=== PATIENT | female | born 1990 | race African-American/Black ===

== ENCOUNTER 2017-07-04 13:25 | Emergency (ER) | payer OTHER ==
--- NOTE | ~2017-07-04 | EKG ---
PATIENT: CALDERON MCNULTY UNIT #: [id number] Ventricular Rate: 70 BPM Atrial Rate: 70 BPM P-R Interval: 150 ms QRS Duration: 76 ms Q-T Interval: 404 ms QTC Calculation(Bezet): 436 ms P [place]: 69 degrees Calculated R [place]: 51 degrees Calculated T [place]: 16 degrees Diagnosis Line: Normal sinus rhythm with sinus arrhythmia Diagnosis Line: Low voltage QRS Diagnosis Line: Poor R wave progression questionable lead position Diagnosis Line: or body habitus Diagnosis Line: Borderline ECG Diagnosis Line: No previous ECGs available Diagnosis Line: Confirmed by IGOR RICO MD ([id number]) on 07/05/2017 Diagnosis Line: 7:16:03 PM INTERPRETING MD: JACKY CARRILLO
--- NOTE | ~2017-07-04 | CR63 ---
[facility] A Service of [facility] & [facility] / [facility] RADIOLOGY TEXT RESULTS PATIENT: CALDERON MCNULTY LOCATION: CFTX : 88 UNIT #: [id number] AGE: [address]: HAYLEE GARRETT SEX: F ORDER DR: [id number] [facility] [address] [facility]. [id number] MR#: [id number] Acc #: [id number] NAME: CALDERON MCNULTY : 1990 SEX: F STUDY DATE/TIME: 07/04/2017 15:43 UNIT: [facility] ROOM: STUDY DESCRIPTION: CR Chest 2 View Attending Physician: Haylee Garrett Aprn Ordering Physician: Haylee Garrett Aprn MEDICAL IMAGING REPORT This report is preliminary unless electronic signature is present EXAM Two-view chest HISTORY Chest pain, painful breathing, cough, onset today. FINDINGS PA and lateral examination of the chest upright shows a good expansion of the parenchyma with a normal distribution of the pulmonary vascularity. There is no indication of congestion, effusion, infiltrate, tumor, or nodular density. The pleural reflections and diaphragmatic contours are normal. The cardiac silhouette and mediastinal anatomy is within normal limits. IMPRESSION Normal chest. Dictated by... Aniket Licea M.D. THIS IS AN ELECTRONICALLY VERIFIED REPORT Aniket Licea M.D. at 07/04/2017 8:48 PM Chana TD: 07/04/2017 19:28 JOB #: [id number] MEDICAL IMAGING REPORT Page 1 of 1 COPY
[2017-07-04 15:19] LABS: POC - CKMB <1.0 ng/mL (0.0-7.9); POC - TROPONIN <0.05 ng/mL (<=0.05)
[2017-07-04 15:26] LABS: BASOPHIL# 0.1 X10e3 (0-0.3); BASOPHIL% 1.3 % (0-2.5); EOSINOPHIL# 0.8 X10e3 (0-0.7); EOSINOPHIL% 6.7 % (0.0-7.0); HEMATOCRIT 40.3 % (35.0-45.0); HEMOGLOBIN 13.9 gm/dL (12.0-16.0); LYMPHOCYTE# 3.2 X10e3 (1.0-3.5); LYMPHOCYTE% 28.9 % (17.0-45.0); MEAN CELL VOLUME 83.4 FL (83-96); MEAN CORPUSCULAR HEMOGLOBIN 28.8 PG (28-34); MEAN CORPUSCULAR HGB CONC 34.5 g/dL (30-36); MEAN PLATELET VOLUME 9.5 FL (6.5-11.5); MONOCYTE# 0.9 X10e3 (0-1.0); MONOCYTE% 8.4 % (3.0-12.0); NEUTROPHIL# 6.1 X10e3 (1.5-7.1); NEUTROPHIL% 54.7 % (40-75); PLATELET COUNT 212 X10e3 (140-420); RED BLOOD COUNT 4.84 X10e (3.90-5.30); RED CELL DISTRIBUTION WIDTH 13.7 % (11.0-15.5); WHITE BLOOD COUNT 11.2 X10e3 (4.0-10.5)
[2017-07-04 15:31] LABS: DIFF IND NO
[2017-07-04 15:56] LABS: CALCIUM SERUM 8.9 mg/dL (8.4-10.2); CREATININE SERUM 0.9 mg/dL (0.6-1.4); GLOM FILT RATE Estimated 100.9 mL/min (>60); POTASSIUM 3.8 mmol/L (3.5-5.1)
== END 2017-07-04 16:53 | disposition home or self-care (01) ==
LOC: CFTX 13:25 → CED 13:25 → CFTX 15:24
PROVIDERS: Nurse Practitioner Family
DX: M94.0 Chondrocostal junction syndrome [Tietze] (principal); R55 Syncope and collapse; F17.210 Nicotine dependence, cigarettes, uncomplicated
CPT/HCPCS: 36415; 71020; 80048; 82553; 84484; 84703; 85025; 93005; 99284